=== PATIENT | male | born 1940 | race Caucasian/White ===

== ENCOUNTER 2016-09-13 08:19 | Outpatient (CLI) | payer MEDICARE, OTHER ==
[2016-09-13 12:52] LABS: #Basophils 0.1 thou/uL (0.0-0.2); #Eosinphils 0.5 thou/uL (0.0-0.7); #Lymphocytes 2.1 thou/uL (1.20-3.40); #Monocytes 0.6 thou/uL (0.11-0.59); #Neutrophils 6.8 thou/uL (1.40-6.50); %Eosinophils 5.1 % (0.0-10.0); %Lymphocytes 20.6 % (21.0-51.0); %Monocytes 5.7 % (0.0-10.0); Hematocrit 47.9 % (42.0-52.0); Mean Platelet Volume 5.9 fL (7.4-10.4); Red Blood Cell (RBC) Count 5.34 mill/uL (4.70-6.10)
[2016-09-13 12:53] LABS: ALT (SGPT) 24 U/L (0-55); AST (SGOT) 19 U/L (5-34); Alkaline Phosphatase 78 U/L (40-150); Anion Gap 13 mmol/L (10-20); BUN (Urea Nitrogen) 10 mg/dL (8.4-25.7); Bilirubin, Total 0.6 mg/dL (0.2-1.2); Calc. Creatinine Clearance 0 mL/min (70-130); Calcium 9.1 mg/dL (7.8-10.44); Carbon Dioxide 28 mmol/L (23-31); Chloride 105 mmol/L (98-107); Estimated GFR-MDRD Greater than 90; Globulin 2.6 g/dL (2.4-3.5); LDL Cholesterol, Calculated 91 mg/dL; Protein, Total 6.2 g/dL (5.8-8.1)
[2016-09-13 13:17] LABS: Hemoglobin A1c 7.1 % (4.0-6.0)
== END 2016-09-13 08:20 | disposition home or self-care (01) ==
LOC: NAVSJIPCSP 08:19
PROVIDERS: ATTEND Internal Medicine
DX: Z51.81 Encounter for therapeutic drug level monitoring (principal); Z79.899 Other long term (current) drug therapy
CPT/HCPCS: 36415; 80053; 80061; 83036; 85025

== ENCOUNTER 2017-01-01 08:00 | Outpatient (CLI) | payer MEDICARE, OTHER ==
[2017-01-01 13:11] LABS: ALT (SGPT) 16 U/L (8-55); AST (SGOT) 18 U/L (5-34); Albumin 3.5 g/dL (3.4-4.8); Alkaline Phosphatase 69 U/L (40-150); Anion Gap 16 mmol/L (10-20); BUN (Urea Nitrogen) 10 mg/dL (8.4-25.7); Bilirubin, Total 0.5 mg/dL (0.2-1.2); Calc. Creatinine Clearance 0 mL/min (70-130); Calcium 8.9 mg/dL (7.8-10.44); Carbon Dioxide 27 mmol/L (23-31); Cardiac Risk 4.6 (Less than 4.5); Chloride 103 mmol/L (98-107); Cholesterol 165 mg/dl (< 200 Desired); Estimated GFR-MDRD 89; Glucose 95 mg/dL (83-110); HDL Cholesterol 36 mg/dL (>60 Neg Risk); LDL Cholesterol, Calculated 101 mg/dL; Potassium 4.5 mmol/L (3.5-5.1); Protein, Total 6.5 g/dL (5.8-8.1); Sodium 141 mmol/L (136-145); Triglycerides 139 mg/dL (Less than 150)
[2017-01-01 13:51] LABS: Hemoglobin A1c 6.5 % (4.0-6.0)
== END 2017-01-01 08:01 | disposition home or self-care (01) ==
LOC: NAVSJIPCSP 08:00
PROVIDERS: ATTEND Internal Medicine
DX: Z51.81 Encounter for therapeutic drug level monitoring (principal); Z79.899 Other long term (current) drug therapy
CPT/HCPCS: 36415; 80053; 80061; 83036

== ENCOUNTER 2018-07-26 07:42 | Emergency (ER) | payer MEDICARE, OTHER ==
[2018-07-26 08:04] LABS: #Basophils 0.1 thou/uL (0.0-0.2); #Eosinphils 0.2 thou/uL (0.0-0.7); #Lymphocytes 1.6 thou/uL (1.20-3.40); #Monocytes 0.9 thou/uL (0.11-0.59); #Neutrophils 10.5 thou/uL (1.40-6.50); %Basophils 0.7 % (0.0-1.0); %Eosinophils 1.4 % (0.0-10.0); %Lymphocytes 11.8 % (21.0-51.0); %Neutrophils 79.2 % (42.0-75.0); Hemoglobin 13.2 g/dL (14.0-18.0); Mean Corpuscular HGB CONC 30.6 g/dL (32.0-36.0); Mean Corpuscular Hemoglobin 26.1 pg (27.0-31.0); Mean Platelet Volume 6.4 fL (7.4-10.4); Platelet Count 357 thou/uL (130-400); RBC Distribution Width 14.3 % (11.5-14.5); Red Blood Cell (RBC) Count 5.05 mill/uL (4.70-6.10); White Blood Cell (WBC) Count 13.2 thou/uL (4.8-10.8)
[2018-07-26 08:18] LABS: ALT (SGPT) 13 U/L (8-55); AST (SGOT) 16 U/L (5-34); Albumin 3.5 g/dL (3.4-4.8); Alkaline Phosphatase 62 U/L (40-150); Anion Gap 13 mmol/L (10-20); BUN (Urea Nitrogen) 10 mg/dL (8.4-25.7); Bilirubin, Total 0.7 mg/dL (0.2-1.2); Calc. Creatinine Clearance 0 mL/min (70-130); Calcium 9.1 mg/dL (7.8-10.44); Carbon Dioxide 28 mmol/L (23-31); Chloride 102 mmol/L (98-107); Estimated GFR-MDRD Greater than 90; Glucose 98 mg/dL (83-110); Potassium 3.8 mmol/L (3.5-5.1); Protein, Total 6.5 g/dL (5.8-8.1); Sodium 139 mmol/L (136-145)
[2018-07-26 08:19] LABS: Troponin I Less than 0.010 ng/mL (< 0.028)
--- NOTE | 2018-07-26 09:17 | RAD ---
CHEST ONE VIEW: INDICATIONS: Shortness of breath and chest pain. COMPARISON: 06/25/2016 FINDINGS: Chronic lung changes are stable. Cardiomegaly persists. Osseous structures are unchanged. IMPRESSION: Stable chronic lung changes and mild cardiomegaly. POS: [facility]
== END 2018-07-26 09:47 | disposition short-term general hospital (02) ==
LOC: NAV ERS 07:42
DX: I20.9 Angina pectoris, unspecified (principal); E11.9 Type 2 diabetes mellitus without complications; I10 Essential (primary) hypertension; N40.0 Benign prostatic hyperplasia without lower urinary tract symptoms; F41.9 Anxiety disorder, unspecified; Z87.891 Personal history of nicotine dependence; Z79.899 Other long term (current) drug therapy; Z79.84 Long term (current) use of oral hypoglycemic drugs
CPT/HCPCS: 71045; 80053; 83880; 84484; 85025; 93005

== ENCOUNTER 2018-10-13 14:25 | Emergency (ER) | payer MEDICARE, OTHER ==
[2018-10-13] MEDS ORDERED: Sodium Chloride 0.9% 1,000 ML ONE (14:46)
[2018-10-13] MEDS ORDERED: Ketorolac Tromethamine 30 MG/ML VIAL ONE (14:46)
[2018-10-13 15:15] LABS: #Basophils 0.1 thou/uL (0.0-0.2); #Eosinphils 0.3 thou/uL (0.0-0.7); #Lymphocytes 2.6 thou/uL (1.20-3.40); #Monocytes 1.1 thou/uL (0.11-0.59); %Basophils 0.9 % (0.0-1.0); %Eosinophils 2.1 % (0.0-10.0); %Lymphocytes 17.1 % (21.0-51.0); %Monocytes 7.4 % (0.0-10.0); %Neutrophils 72.5 % (42.0-75.0); Hemoglobin 12.1 g/dL (14.0-18.0); Mean Corpuscular HGB CONC 29.7 g/dL (32.0-36.0); Mean Corpuscular Hemoglobin 25.7 pg (27.0-31.0); Mean Corpuscular Volume 86.3 fL (78.0-98.0); Mean Platelet Volume 6.6 fL (7.4-10.4); Platelet Count 442 thou/uL (130-400); RBC Distribution Width 14.9 % (11.5-14.5); White Blood Cell (WBC) Count 15.2 thou/uL (4.8-10.8)
[2018-10-13 15:20] LABS: Anion Gap 12 mmol/L (10-20); BUN (Urea Nitrogen) 15 mg/dL (8.4-25.7); Calc. Creatinine Clearance 0 mL/min (70-130); Calcium 9.3 mg/dL (7.8-10.44); Carbon Dioxide 28 mmol/L (23-31); Chloride 102 mmol/L (98-107); Estimated GFR-MDRD 67; Glucose 119 mg/dL (83-110); Sodium 138 mmol/L (136-145)
[2018-10-13] MEDS ORDERED: methylPREDNISolone Sod Succ/PF 125 MG/2 ML VIAL ONE (15:37)
--- NOTE | 2018-10-13 15:48 | CT ---
CT ABDOMEN AND PELVIS WITHOUT CONTRAST STONE PROTOCOL 10/13/18 HISTORY: Low back pain. Muscle spasm. COMPARISON: CT abdomen and pelvis 10/09/15. FINDINGS: There is fibrosis in the lung bases mildly progressed from the comparison examination. No pericardial effusion. There is extensive motion throughout the exam limiting evaluation. No nephroureterolithiasis or hydro ureteronephrosis. No secondary evidence of a recently passed stone. Hypodense lesion of the posterior cortex superior pole right kidney is similar. Multiple small left parapelvic renal cysts. No calculi within the urinary bladder. Mild diverticular disease sigmoid colon without active current inflammat ion. There is also diverticular disease throughout the transverse and ascending colon also without ac tive inflammation. Appendix is visualized and appears normal. Moderate atherosclerotic plaque throughout the aorta without aneurysmal dilatation. No dilated loops of large or small bowel. Non contrast evaluation of the liver, spleen, gallbladder, as well as the pa ncreas are unremarkable. Adrenal glands are unremarkable. Moderate degenerative disease of L5-S1. IMPRESSION: 1. No nephroureterolithiasis or hydroureteronephrosis. No secondary evidence of recently passed stone. 2. Mild diverticular disease of the colon without active current inflammation. 3. Normal appendix. 4. No acute inflammatory process within the abdomen or pelvis. 5. Lung base findings suggestive of pulmonary fibrosis. POS: [facility]
== END 2018-10-13 16:03 | disposition home or self-care (01) ==
LOC: NAV ERS 14:25
DX: M54.5 Low back pain (principal); I48.91 Unspecified atrial fibrillation; I25.10 Atherosclerotic heart disease of native coronary artery without angina pectoris; E11.9 Type 2 diabetes mellitus without complications; N40.0 Benign prostatic hyperplasia without lower urinary tract symptoms; I10 Essential (primary) hypertension; F41.9 Anxiety disorder, unspecified; Z87.891 Personal history of nicotine dependence; Z79.899 Other long term (current) drug therapy; Z79.4 Long term (current) use of insulin; Z79.51 Long term (current) use of inhaled steroids
CPT/HCPCS: 74176; 80048; 85025; 96361; 96374; 96375; J1885; J2930; J7050

== ENCOUNTER 2018-10-17 13:01 | Emergency (ER) | payer MEDICARE, OTHER ==
[2018-10-17 14:09] LABS: ALT (SGPT) 19 U/L (8-55); AST (SGOT) 25 U/L (5-34); Albumin 3.1 g/dL (3.4-4.8); Alkaline Phosphatase 82 U/L (40-150); Anion Gap 20 mmol/L (10-20); BUN (Urea Nitrogen) 30 mg/dL (8.4-25.7); Bilirubin, Total 0.6 mg/dL (0.2-1.2); Calc. Creatinine Clearance 0 mL/min (70-130); Calcium 8.5 mg/dL (7.8-10.44); Carbon Dioxide 21 mmol/L (23-31); Chloride 103 mmol/L (98-107); Estimated GFR-MDRD 54; Globulin 2.7 g/dL (2.4-3.5); Glucose 217 mg/dL (83-110); Potassium 4.7 mmol/L (3.5-5.1); Protein, Total 5.8 g/dL (5.8-8.1); Sodium 139 mmol/L (136-145)
[2018-10-17 14:13] LABS: Band 1 % (5-11); Crenated RBC SLIGHT = 1-5 cells (100X) (None Seen); Hemoglobin 12.5 g/dL (14.0-18.0); Lymphocytes 3 % (21-51); MDiff Complete? YES; Mean Corpuscular Hemoglobin 25.8 pg (27.0-31.0); Mean Platelet Volume 6.6 fL (7.4-10.4); Monocytes 4 % (0-10); Neutrophil 92 % (42-75); Platelet Count 525 thou/uL (130-400); RBC Distribution Width 14.9 % (11.5-14.5); Red Blood Cell (RBC) Count 4.84 mill/uL (4.70-6.10); White Blood Cell (WBC) Count 29.9 thou/uL (4.8-10.8)
[2018-10-17] MEDS ORDERED: cefTRIAXone\\ROCEPHIN 1 GM VIAL ONE (14:43)
--- NOTE | 2018-10-17 16:17 | RAD ---
TWO VIEWS CHEST: 10/17/18 COMPARISON: 07/26/18. HISTORY: Dyspnea. FINDINGS: Limited evaluation due to technique. Heart size appears to be upper normal. there is atherosclerosis of the aorta. There are increased interstitial and alveolar opacities throughout the lung parenchyma. There appears to be a opacity in the right hemithorax which may represent loculated pleural fluid. P arenchymal changes cannot be excluded. IMPRESSION: Interstitial and alveolar opacities and presumed right sided pleural effusion. Continued surveillance is recommended. CT may be beneficial. POS: [facility]
== END 2018-10-17 16:25 | disposition short-term general hospital (02) ==
LOC: NAV ERS 13:01
DX: J18.1 Lobar pneumonia, unspecified organism (principal); R09.02 Hypoxemia; I10 Essential (primary) hypertension; M54.5 Low back pain; I48.91 Unspecified atrial fibrillation; F41.9 Anxiety disorder, unspecified; I25.10 Atherosclerotic heart disease of native coronary artery without angina pectoris; N40.0 Benign prostatic hyperplasia without lower urinary tract symptoms; Z87.891 Personal history of nicotine dependence
CPT/HCPCS: 71046; 80053; 83605; 83880; 83986; 84484; 85025; 85379; 87040; 87804; 93005; 96365; J0696; J7620